=== PATIENT | female | born 1935 | race Caucasian/White ===

== ENCOUNTER 2019-12-11 06:36 | Inpatient (IN) ==
[2019-12-11 11:37] LABS: Basophils % 0.3 %; Eosinophils # 0.1 K/mcL (0.0-0.6); Eosinophils % 1.2 %; Hematocrit 29.2 % (35.3-44.9); Hemoglobin 9.3 g/dL (11.5-15.4); Immature Granulocytes % 0.3 % (0-4); Lymphocytes # 0.9 K/mcL (0.6-4.6); Lymphocytes % 15.8 %; Mean Corpuscular HGB Conc 31.8 g/dL (31.6-35.5); Mean Corpuscular Hemoglobin 32.3 pg (28.0-33.3); Mean Corpuscular Volume 101.4 fL (83.0-100.0); Mean Platelet Volume 9.6 fL (9.4-12.4); Monocytes # 0.5 K/mcL (0.0-1.3); Monocytes % 8.7 %; Neutrophils # 4.3 K/mcL (1.6-8.9); Platelet Count 204 K/mcL (140-400); Red Blood Count 2.88 M/mcL (3.82-4.97); Red Cell Distribution Width 15.2 % (11.5-14.5); Segmented Neutrophils % 73.7 %; White Blood Count 5.9 K/mcL (4.3-11.1)
[2019-12-11 12:00] LABS: Alanine Aminotransferase 44 Units/L (7-52); Albumin 3.8 g/dL (3.5-5.7); Albumin/Globulin Ratio 1.1 (1.1-2.2); Alkaline Phosphatase 63 Units/L (34-104); Aspartate Amino Transferase 47 Units/L (13-39); BUN/Creatinine Ratio 31 (6-26); Bilirubin,Total 0.8 mg/dL (0.3-1.0); Blood Urea Nitrogen 28 mg/dL (8-23); Calcium 8.8 mg/dL (8.6-10.3); Carbon Dioxide 25 mEq/L (23-29); Chloride 108 mEq/L (98-107); Globulin 3.5 g/dL (2.4-3.5); Glucose 96 mg/dL (70-105); Magnesium 1.9 mg/dL (1.6-2.6); Osmolality,Calculated 291 (280-300); Potassium 4.1 mEq/L (3.5-5.1); Sodium 138 mEq/L (136-145); Total Protein 7.3 g/dL (6.4-8.9); Troponin I < 0.03 ng/mL (< 0.04); eGFR For African Americans > 60 (> 60); eGFR For Non-African Americans > 60 (> 60)
[2019-12-11 12:16] LABS: INR 1.2; Prothrombin Time 13.5 Seconds (9.4-12.1)
[2019-12-11] MEDS ORDERED: Perflutren Lipid Microsphere 1.3 ML in 0.9 % Sodium Chloride 8.7 ML IVP PRN (12:29)
[2019-12-11] MEDS: Acyclovir 200 MG CAPSULE PO SCH ×2 (15:50→19:42)
[2019-12-11] MEDS: amLODIPine 5 MG TABLET PO SCH (15:51)
[2019-12-11] MEDS: Aspirin 81 MG TAB.CHEW PO SCH (17:13)
[2019-12-11] MEDS ORDERED: Furosemide 40 MG/4 ML VIAL IVP ONE (18:23)
[2019-12-11] MEDS ORDERED: Furosemide 40 MG/4 ML VIAL IVP SCH (21:00)
[2019-12-11] MEDS: Famotidine 20 MG TABLET PO SCH (21:58)
[2019-12-12 01:48] LABS: Hematocrit 30.1 % (35.3-44.9); Hemoglobin 9.6 g/dL (11.5-15.4); Mean Corpuscular HGB Conc 31.9 g/dL (31.6-35.5); Mean Corpuscular Hemoglobin 32.3 pg (28.0-33.3); Mean Corpuscular Volume 101.3 fL (83.0-100.0); Mean Platelet Volume 9.7 fL (9.4-12.4); Platelet Count 218 K/mcL (140-400); Red Blood Count 2.97 M/mcL (3.82-4.97); Red Cell Distribution Width 15.3 % (11.5-14.5); White Blood Count 6.6 K/mcL (4.3-11.1)
[2019-12-12 02:06] LABS: Calcium 8.6 mg/dL (8.6-10.3); Magnesium 1.7 mg/dL (1.6-2.6); Potassium 4.1 mEq/L (3.5-5.1)
[2019-12-12 02:09] LABS: Troponin I < 0.03 ng/mL (< 0.04)
[2019-12-12] MEDS ORDERED: Furosemide 40 MG/4 ML VIAL IVP SCH (08:00)
[2019-12-12 08:41] LABS: Thyroid Stimulating Hormone 1.212 mcIU/mL (0.340-5.600)
[2019-12-12] MEDS ORDERED: calcitrioL 0.25 MCG CAPSULE PO SCH (09:00)
[2019-12-12] MEDS: Acyclovir 200 MG CAPSULE PO SCH ×3 (09:50→19:42)
[2019-12-12] MEDS: amLODIPine 5 MG TABLET PO SCH (09:50)
[2019-12-12] MEDS: Famotidine 20 MG TABLET PO SCH (09:50)
[2019-12-12] MEDS: *HR* Enoxaparin 30 MG/0.3 ML SYRINGE SQ SCH (13:41)
[2019-12-12] MEDS: Aspirin 81 MG TAB.CHEW PO SCH (18:00)
[2019-12-13] MEDS: *HR* Enoxaparin 30 MG/0.3 ML SYRINGE SQ SCH (05:17)
[2019-12-13] MEDS: Acyclovir 200 MG CAPSULE PO SCH (08:51)
[2019-12-13] MEDS: amLODIPine 5 MG TABLET PO SCH (08:51)
[2019-12-13] MEDS ORDERED: Famotidine 20 MG TABLET PO SCH (09:00)
[2019-12-13 10:12] LABS: Basophils % 0.5 %; Eosinophils # 0.2 K/mcL (0.0-0.6); Eosinophils % 4.1 %; Hemoglobin 9.4 g/dL (11.5-15.4); Immature Granulocytes % 0.2 % (0-4); Lymphocytes % 17.1 %; Mean Corpuscular HGB Conc 32.4 g/dL (31.6-35.5); Mean Corpuscular Hemoglobin 33.1 pg (28.0-33.3); Mean Corpuscular Volume 102.1 fL (83.0-100.0); Mean Platelet Volume 9.5 fL (9.4-12.4); Monocytes # 0.5 K/mcL (0.0-1.3); Monocytes % 8.6 %; Platelet Count 224 K/mcL (140-400); Red Blood Count 2.84 M/mcL (3.82-4.97); Red Cell Distribution Width 15.1 % (11.5-14.5); Segmented Neutrophils % 69.5 %; White Blood Count 5.8 K/mcL (4.3-11.1)
[2019-12-13 10:31] LABS: Calcium 8.9 mg/dL (8.6-10.3); Potassium 3.9 mEq/L (3.5-5.1)
[2019-12-13] MEDS ORDERED: Furosemide 20 MG TABLET PO SCH (11:30)
[2019-12-13 14:42] VITALS: BP 137/60
== END 2019-12-13 16:07 | disposition home or self-care (01) | DRG 291 ==
LOC: CDU → SUATTDRO 08:57 → 2ANU 10:20
PROVIDERS: ADMIT Student in an Organized Health Care Education/Training Program; ATTEND Internal Medicine

== ENCOUNTER 2019-12-17 04:45 | Inpatient (IN) ==
[2019-12-17] MEDS ORDERED: Naloxone 0.4 MG/ML INJ IVP PRN (07:08)
[2019-12-17] MEDS ORDERED: *HR* HYDROcodone/Acet 5/325 mg TABLET PO PRN (07:08)
[2019-12-17] MEDS ORDERED: Ondansetron 4 MG/2 ML VIAL IVP PRN (07:08)
[2019-12-17] MEDS ORDERED: Albuterol 2.5 MG/3 ML NEBULIZER IH PRN (07:13)
[2019-12-17 08:34] LABS: ABG Base Excess -3 mEq/L (-2 to 3); ABG HCO3 23 mEq/L (21-27); ABG Oxygen Saturation 99 % (95-98); ABG PCO2 40 mmHg (35-45); ABG PH 7.35 pH Units (7.32-7.45); ABG PO2 120 mmHg (85-104); ABG TCO2 24 mEq/L (20-26)
[2019-12-17] MEDS: Furosemide 40 MG/4 ML VIAL IVP SCH ×2 (08:51→21:20)
[2019-12-17 09:17] LABS: Basophils % 0.2 %; Hematocrit 29.8 % (35.3-44.9); Hemoglobin 9.3 g/dL (11.5-15.4); Immature Granulocytes % 0.4 % (0-4); Lymphocytes # 0.6 K/mcL (0.6-4.6); Lymphocytes % 11.7 %; Mean Corpuscular HGB Conc 31.2 g/dL (31.6-35.5); Mean Corpuscular Hemoglobin 32.4 pg (28.0-33.3); Mean Corpuscular Volume 103.8 fL (83.0-100.0); Mean Platelet Volume 9.8 fL (9.4-12.4); Monocytes # 0.1 K/mcL (0.0-1.3); Monocytes % 1.4 %; Neutrophils # 4.4 K/mcL (1.6-8.9); Platelet Count 207 K/mcL (140-400); Red Blood Count 2.87 M/mcL (3.82-4.97); Red Cell Distribution Width 15.9 % (11.5-14.5); Segmented Neutrophils % 86.3 %
[2019-12-17 09:19] LABS: INR 1.3; Prothrombin Time 14.8 Seconds (9.4-12.1)
[2019-12-17 09:38] LABS: BUN/Creatinine Ratio 39 (6-26); Blood Urea Nitrogen 37 mg/dL (8-23); Calcium 7.8 mg/dL (8.6-10.3); Carbon Dioxide 21 mEq/L (23-29); Chloride 111 mEq/L (98-107); Glucose 147 mg/dL (70-105); Osmolality,Calculated 299 (280-300); Phosphorous 2.6 mg/dL (2.7-4.5); Potassium 4.8 mEq/L (3.5-5.1); Sodium 139 mEq/L (136-145); Troponin I < 0.03 ng/mL (< 0.04); eGFR For African Americans > 60 (> 60); eGFR For Non-African Americans 57 (> 60)
[2019-12-17] MEDS: *HR* Enoxaparin 60 MG/0.6 ML SYRINGE SQ SCH ×2 (10:29→18:41)
[2019-12-17] MEDS ORDERED: Cholestyramine 4 GM POWD.PACK PO PRN (11:27)
[2019-12-17] MEDS: Aspirin 81 MG TAB.CHEW PO SCH (18:41)
[2019-12-18] MEDS: *HR* Enoxaparin 60 MG/0.6 ML SYRINGE SQ SCH (06:11)
[2019-12-18] MEDS: Cyanocobalamin (B-12) 1,000 MCG TABLET PO SCH (09:12)
[2019-12-18] MEDS: amLODIPine 5 MG TABLET PO SCH (09:12)
[2019-12-18] MEDS: Cholecalciferol (D-3) 1,000 UNIT (25MCG) TABLET PO SCH (09:12)
[2019-12-18 09:24] LABS: Basophils % 0.4 %; Eosinophils # 0.1 K/mcL (0.0-0.6); Eosinophils % 0.7 %; Hematocrit 29.9 % (35.3-44.9); Hemoglobin 9.4 g/dL (11.5-15.4); Immature Granulocytes % 0.2 % (0-4); Lymphocytes # 1.6 K/mcL (0.6-4.6); Lymphocytes % 18.8 %; Mean Corpuscular HGB Conc 31.4 g/dL (31.6-35.5); Mean Corpuscular Hemoglobin 32.3 pg (28.0-33.3); Mean Corpuscular Volume 102.7 fL (83.0-100.0); Mean Platelet Volume 9.4 fL (9.4-12.4); Monocytes # 0.7 K/mcL (0.0-1.3); Monocytes % 7.9 %; Platelet Count 256 K/mcL (140-400); Red Blood Count 2.91 M/mcL (3.82-4.97); Red Cell Distribution Width 16.2 % (11.5-14.5)
[2019-12-18 09:25] LABS: Neutrophils # 6.1 K/mcL (1.6-8.9); White Blood Count 8.4 K/mcL (4.3-11.1)
[2019-12-18 09:45] LABS: Calcium 8.1 mg/dL (8.6-10.3); Potassium 3.8 mEq/L (3.5-5.1)
[2019-12-18] MEDS: Aspirin 81 MG TAB.CHEW PO SCH (16:55)
[2019-12-18] MEDS: Acyclovir 200 MG CAPSULE PO SCH (20:24)
[2019-12-18] MEDS ORDERED: Famotidine 20 MG TABLET PO SCH (21:00)
[2019-12-19 03:24] LABS: Basophils % 0.3 %; Eosinophils # 0.1 K/mcL (0.0-0.6); Eosinophils % 1.6 %; Hemoglobin 9.3 g/dL (11.5-15.4); Immature Granulocytes % 0.3 % (0-4); Lymphocytes # 1.4 K/mcL (0.6-4.6); Lymphocytes % 22.4 %; Mean Corpuscular HGB Conc 32.1 g/dL (31.6-35.5); Mean Corpuscular Hemoglobin 33.7 pg (28.0-33.3); Mean Corpuscular Volume 105.1 fL (83.0-100.0); Mean Platelet Volume 9.9 fL (9.4-12.4); Monocytes # 0.5 K/mcL (0.0-1.3); Monocytes % 8.1 %; Neutrophils # 4.1 K/mcL (1.6-8.9); Platelet Count 247 K/mcL (140-400); Red Blood Count 2.76 M/mcL (3.82-4.97); Red Cell Distribution Width 15.7 % (11.5-14.5); Segmented Neutrophils % 67.3 %; White Blood Count 6.1 K/mcL (4.3-11.1)
[2019-12-19 03:27] LABS: INR 1.2; Prothrombin Time 13.4 Seconds (9.4-12.1)
[2019-12-19 03:37] LABS: Calcium 8.5 mg/dL (8.6-10.3)
[2019-12-19] MEDS ORDERED: *HR* Enoxaparin 60 MG/0.6 ML SYRINGE SQ SCH (06:00)
[2019-12-19] MEDS ORDERED: calcitrioL 0.25 MCG CAPSULE PO SCH (09:00)
[2019-12-19] MEDS: Acyclovir 200 MG CAPSULE PO SCH ×3 (09:54→20:06)
[2019-12-19] MEDS: Famotidine 20 MG TABLET PO SCH (09:54)
[2019-12-19] MEDS: Cholecalciferol (D-3) 1,000 UNIT (25MCG) TABLET PO SCH (09:55)
[2019-12-19] MEDS: Furosemide 20 MG TABLET PO SCH (09:55)
[2019-12-19] MEDS: amLODIPine 5 MG TABLET PO SCH (09:55)
[2019-12-19] MEDS: Cyanocobalamin (B-12) 1,000 MCG TABLET PO SCH (09:55)
[2019-12-19] MEDS ORDERED: Perflutren Lipid Microsphere 1.3 ML in 0.9 % Sodium Chloride 8.7 ML IVP PRN (12:13)
[2019-12-19] MEDS: Apixaban 5 MG TABLET PO SCH (17:19)
[2019-12-19] MEDS: Aspirin 81 MG TAB.CHEW PO SCH (17:20)
[2019-12-20 05:53] LABS: Hematocrit 29.7 % (35.3-44.9); Hemoglobin 9.6 g/dL (11.5-15.4); Mean Corpuscular HGB Conc 32.3 g/dL (31.6-35.5); Mean Corpuscular Hemoglobin 33.6 pg (28.0-33.3); Mean Corpuscular Volume 103.8 fL (83.0-100.0); Mean Platelet Volume 9.4 fL (9.4-12.4); Platelet Count 220 K/mcL (140-400); Red Blood Count 2.86 M/mcL (3.82-4.97); Red Cell Distribution Width 15.4 % (11.5-14.5); Segmented Neutrophils % 64.9 %; White Blood Count 4.8 K/mcL (4.3-11.1)
[2019-12-20 05:54] LABS: Basophils % 0.4 %; Eosinophils # 0.2 K/mcL (0.0-0.6); Eosinophils % 3.7 %; Immature Granulocytes % 0.2 % (0-4); Lymphocytes % 20.9 %; Monocytes # 0.5 K/mcL (0.0-1.3); Monocytes % 9.9 %; Neutrophils # 3.1 K/mcL (1.6-8.9)
[2019-12-20] MEDS: Acyclovir 200 MG CAPSULE PO SCH ×2 (07:14→15:03)
[2019-12-20] MEDS: Cholecalciferol (D-3) 1,000 UNIT (25MCG) TABLET PO SCH (07:14)
[2019-12-20] MEDS: Cyanocobalamin (B-12) 1,000 MCG TABLET PO SCH (07:14)
[2019-12-20] MEDS: amLODIPine 5 MG TABLET PO SCH (07:14)
[2019-12-20] MEDS: Apixaban 5 MG TABLET PO SCH (07:15)
[2019-12-20] MEDS: Furosemide 20 MG TABLET PO SCH (07:15)
[2019-12-20] MEDS: Famotidine 20 MG TABLET PO SCH (07:15)
[2019-12-20] MEDS ORDERED: amLODIPine 5 MG TABLET PO ONE (08:43)
[2019-12-20 11:42] VITALS: BP 126/54
[2019-12-21] MEDS ORDERED: amLODIPine 5 MG TABLET PO SCH (09:00)
== END 2019-12-20 15:05 | disposition home or self-care (01) | DRG 176 ==
LOC: 2ANU → SUATTDRO 06:22
PROVIDERS: ADMIT Internal Medicine; ATTEND Internal Medicine

== ENCOUNTER 2020-01-21 05:39 | Inpatient (IN) ==
[2020-01-21] MEDS ORDERED: Isovue-370 500 ML BOTTLE IVP ONE (07:13)
[2020-01-21] MEDS ORDERED: Pantoprazole 80 MG in 0.9 % Sodium Chloride 50 ML IVPB ONE (07:13)
[2020-01-21 07:29] LABS: Basophils % 0.6 %; Eosinophils # 0.1 K/mcL (0.0-0.6); Eosinophils % 1.6 %; Hematocrit 28.2 % (35.3-44.9); Immature Granulocytes % 0.4 % (0-4); Lymphocytes # 1.1 K/mcL (0.6-4.6); Lymphocytes % 15.8 %; Mean Corpuscular HGB Conc 31.9 g/dL (31.6-35.5); Mean Corpuscular Hemoglobin 32.6 pg (28.0-33.3); Mean Corpuscular Volume 102.2 fL (83.0-100.0); Mean Platelet Volume 9.6 fL (9.4-12.4); Monocytes # 0.6 K/mcL (0.0-1.3); Monocytes % 9.4 %; Neutrophils # 4.9 K/mcL (1.6-8.9); Platelet Count 257 K/mcL (140-400); Red Blood Count 2.76 M/mcL (3.82-4.97); Red Cell Distribution Width 13.6 % (11.5-14.5); Segmented Neutrophils % 72.2 %; White Blood Count 6.8 K/mcL (4.3-11.1)
[2020-01-21 07:35] LABS: INR 1.4; Prothrombin Time 16.5 Seconds (9.4-12.1)
[2020-01-21 07:51] LABS: Calcium 9.1 mg/dL (8.6-10.3); Potassium 4.3 mEq/L (3.5-5.1)
[2020-01-21 08:25] LABS: Bacteria,Urine Few per hpf (None-Few); Bilirubin,Urine Negative (Negative); Blood,Urine Trace (Negative); Clarity,Urine Turbid (Clear); Color,Urine Light-Yellow (Yellow); Glucose,Urine (UA) Normal (Normal); Hyaline Casts,Urine Few per lpf (None Seen); Ketones,Urine Negative (Negative); Leukocyte Esterase,Urine Large (Negative); Mucus,Urine Few per lpf (None-Few); Nitrite,Urine Positive (Negative); Protein,Urine Trace mg/dL (Neg-Trace); Specific Gravity,Urine 1.018 (1.010-1.025); Squamous Epithelial Cell,Urine Few per hpf (None-Few); Urobilinogen,Urine Normal (Normal); WBC,Urine TNTC per hpf (0-3)
[2020-01-21] MEDS ORDERED: cefTRIAXone 1,000 MG in 0.9 % Sodium Chloride Mini Bag 100 ML IVPB ONE (08:59)
[2020-01-21] MEDS ORDERED: Naloxone 0.4 MG/ML INJ IVP PRN (10:36)
[2020-01-21] MEDS ORDERED: Cholestyramine 4 GM POWD.PACK PO PRN (10:40)
[2020-01-21] MEDS ORDERED: Denosumab 60 MG/ML SYRINGE SQ SCH (10:45)
[2020-01-21 11:36] LABS: Hemoglobin 8.5 g/dL (11.5-15.4)
[2020-01-21] MEDS: Pantoprazole 40 MG VIAL IVP SCH (17:32)
[2020-01-21 17:49] LABS: Hematocrit 26.7 % (35.3-44.9); Hemoglobin 8.2 g/dL (11.5-15.4)
[2020-01-22 01:04] LABS: Basophils % 0.4 %; Eosinophils # 0.1 K/mcL (0.0-0.6); Eosinophils % 1.8 %; Hematocrit 25.6 % (35.3-44.9); Hemoglobin 8.1 g/dL (11.5-15.4); Immature Granulocytes % 0.3 % (0-4); Lymphocytes # 1.1 K/mcL (0.6-4.6); Lymphocytes % 16.4 %; Mean Corpuscular HGB Conc 31.6 g/dL (31.6-35.5); Mean Corpuscular Hemoglobin 32.5 pg (28.0-33.3); Mean Corpuscular Volume 102.8 fL (83.0-100.0); Mean Platelet Volume 9.6 fL (9.4-12.4); Monocytes # 0.6 K/mcL (0.0-1.3); Monocytes % 8.4 %; Neutrophils # 4.9 K/mcL (1.6-8.9); Platelet Count 228 K/mcL (140-400); Red Blood Count 2.49 M/mcL (3.82-4.97); Red Cell Distribution Width 13.8 % (11.5-14.5); Segmented Neutrophils % 72.7 %; White Blood Count 6.8 K/mcL (4.3-11.1)
[2020-01-22] MEDS ORDERED: methylPREDNISolone 125 MG/2 ML VIAL ONE (01:15)
[2020-01-22] MEDS ORDERED: methylPREDNISolone 125 MG/2 ML VIAL IVP ONE (01:17)
[2020-01-22] MEDS: Ipratropium/Albuterol Neb 3 ML IH SCH ×7 (01:22→23:32)
[2020-01-22 01:25] LABS: BUN/Creatinine Ratio 39 (6-26); Blood Urea Nitrogen 37 mg/dL (8-23); Calcium 8.2 mg/dL (8.6-10.3); Carbon Dioxide 22 mEq/L (23-29); Chloride 109 mEq/L (98-107); Glucose 85 mg/dL (70-105); Osmolality,Calculated 292 (280-300); Sodium 137 mEq/L (136-145); eGFR For African Americans > 60 (> 60); eGFR For Non-African Americans 55 (> 60)
[2020-01-22] MEDS ORDERED: Furosemide 40 MG/4 ML VIAL IVP ONE (01:49)
[2020-01-22 02:04] LABS: VBG HCO3 21 mEq/L (21-27); VBG PCO2 44 mmHg (41-51); VBG PO2 185 mmHg (25-50)
[2020-01-22 04:05] LABS: Adenovirus Not Detected (Not Detect); Bordetella Pertussis Not Detected (Not Detect); Chlamydophila pneumoniae Not Detected (Not Detect); Coronavirus 229E Not Detected (Not Detect); Coronavirus HKU1 Not Detected (Not Detect); Coronavirus NL63 Not Detected (Not Detect); Coronavirus OC43 Not Detected (Not Detect); Human Metapneumovirus Not Detected (Not Detect); Human Rhinovirus/Enterovirus Not Detected (Not Detect); Influenza A Subtype 2009 H1 Not Detected (Not Detect); Influenza B Not Detected (Not Detect); Mycoplasma pneumoniae Not Detected (Not Detect); Parainfluenza Virus 1 Not Detected (Not Detect); Parainfluenza Virus 2 Not Detected (Not Detect); Parainfluenza Virus 3 Not Detected (Not Detect); Parainfluenza Virus 4 Not Detected (Not Detect); Respiratory Syncytial Virus Not Detected (Not Detect); SARS-CoV-2 Not Detected (Not Detect)
[2020-01-22] MEDS: Doxycycline 100 MG in 0.9 % Sodium Chloride Mini Bag 100 ML IVPB SCH ×2 (05:13→18:06)
[2020-01-22] MEDS: Pantoprazole 40 MG VIAL IVP SCH ×2 (05:13→18:04)
[2020-01-22] MEDS ORDERED: Furosemide 20 MG/2 ML VIAL IVP SCH (09:00)
[2020-01-22] MEDS ORDERED: Furosemide 20 MG TABLET PO SCH (09:00)
[2020-01-22] MEDS: Heparin 25,000UNIT/250ML 1/2NS 25,000 UNIT/250 ML IV.SOLN IVC SCH (10:52)
[2020-01-22 14:24] LABS: Hemoglobin 8.3 g/dL (11.5-15.4)
[2020-01-22] MEDS: Acyclovir 200 MG CAPSULE PO SCH ×2 (15:30→20:12)
[2020-01-23 02:12] LABS: Hematocrit 25.6 % (35.3-44.9); Hemoglobin 8.2 g/dL (11.5-15.4)
[2020-01-23] MEDS: Ipratropium/Albuterol Neb 3 ML IH SCH ×6 (03:47→23:47)
[2020-01-23] MEDS: Doxycycline 100 MG in 0.9 % Sodium Chloride Mini Bag 100 ML IVPB SCH ×2 (06:07→18:05)
[2020-01-23] MEDS: Pantoprazole 40 MG VIAL IVP SCH ×2 (06:07→18:08)
[2020-01-23] MEDS ORDERED: MethylPREDNISolone 40 MG/ML VIAL IVP STA (07:41)
[2020-01-23 07:53] LABS: ABG Base Excess -7 mEq/L (-2 to 3); ABG HCO3 20 mEq/L (21-27); ABG Oxygen Saturation 90 % (95-98); ABG PCO2 43 mmHg (35-45); ABG PH 7.27 pH Units (7.32-7.45); ABG PO2 67 mmHg (85-104); ABG TCO2 21 mEq/L (20-26)
[2020-01-23] MEDS ORDERED: calcitrioL 0.25 MCG CAPSULE PO SCH (10:40)
[2020-01-23] MEDS ORDERED: methylPREDNISolone 125 MG/2 ML VIAL IVP SCH (12:00)
[2020-01-23] MEDS: Acyclovir 200 MG CAPSULE PO SCH ×3 (12:14→20:28)
[2020-01-23] MEDS ORDERED: cefTRIAXone 1,000 MG in Water for inj. (sterile) 10 ML IVP SCH (13:00)
[2020-01-23 14:48] LABS: Basophils % 0.1 %; Hematocrit 24.5 % (35.3-44.9); Hemoglobin 7.8 g/dL (11.5-15.4); Immature Granulocytes % 0.4 % (0-4); Lymphocytes # 0.5 K/mcL (0.6-4.6); Mean Corpuscular HGB Conc 31.8 g/dL (31.6-35.5); Mean Corpuscular Hemoglobin 32.9 pg (28.0-33.3); Mean Corpuscular Volume 103.4 fL (83.0-100.0); Mean Platelet Volume 9.8 fL (9.4-12.4); Monocytes # 0.1 K/mcL (0.0-1.3); Neutrophils # 9.3 K/mcL (1.6-8.9); Platelet Count 246 K/mcL (140-400); Red Blood Count 2.37 M/mcL (3.82-4.97); Segmented Neutrophils % 93.5 %; White Blood Count 9.9 K/mcL (4.3-11.1)
[2020-01-23 15:04] LABS: Calcium 7.9 mg/dL (8.6-10.3); Potassium 4.3 mEq/L (3.5-5.1)
[2020-01-23] MEDS: Heparin 25,000UNIT/250ML 1/2NS 25,000 UNIT/250 ML IV.SOLN IVC SCH (15:43)
[2020-01-23] MEDS: methylPREDNISolone 125 MG/2 ML VIAL IVP SCH ×2 (18:04→23:24)
[2020-01-23 19:05] LABS: Hematocrit 24.6 % (35.3-44.9); Hemoglobin 7.7 g/dL (11.5-15.4)
[2020-01-23 23:41] LABS: Hematocrit 23.5 % (35.3-44.9); Hemoglobin 7.3 g/dL (11.5-15.4)
[2020-01-24 04:18] LABS: Hemoglobin 7.3 g/dL (11.5-15.4); Mean Corpuscular HGB Conc 30.4 g/dL (31.6-35.5); Mean Corpuscular Hemoglobin 31.3 pg (28.0-33.3); Mean Platelet Volume 9.8 fL (9.4-12.4); Platelet Count 247 K/mcL (140-400); Red Blood Count 2.33 M/mcL (3.82-4.97); Red Cell Distribution Width 13.9 % (11.5-14.5); White Blood Count 6.5 K/mcL (4.3-11.1)
[2020-01-24] MEDS: Ipratropium/Albuterol Neb 3 ML IH SCH ×6 (04:18→23:32)
[2020-01-24 04:37] LABS: BUN/Creatinine Ratio 35 (6-26); Blood Urea Nitrogen 36 mg/dL (8-23); Calcium 7.8 mg/dL (8.6-10.3); Carbon Dioxide 21 mEq/L (23-29); Chloride 111 mEq/L (98-107); Glucose 131 mg/dL (70-105); Osmolality,Calculated 296 (280-300); Potassium 4.2 mEq/L (3.5-5.1); Sodium 138 mEq/L (136-145); eGFR For African Americans > 60 (> 60); eGFR For Non-African Americans 51 (> 60)
[2020-01-24] MEDS: Doxycycline 100 MG in 0.9 % Sodium Chloride Mini Bag 100 ML IVPB SCH ×2 (06:06→18:38)
[2020-01-24] MEDS: Pantoprazole 40 MG VIAL IVP SCH ×2 (06:06→18:37)
[2020-01-24] MEDS: methylPREDNISolone 125 MG/2 ML VIAL IVP SCH (09:34)
[2020-01-24] MEDS ORDERED: *HR* FentaNYL (PF) 100 MCG/2 ML VIAL ONE (11:05)
[2020-01-24] MEDS ORDERED: *HR* Etomidate 40 MG/20 ML VIAL IVP ONE (11:25)
[2020-01-24] MEDS ORDERED: Naloxone 0.4 MG/ML INJ IVP PRN (12:44)
[2020-01-24] MEDS ORDERED: Cholestyramine 4 GM POWD.PACK PO PRN (12:44)
[2020-01-24] MEDS ORDERED: Heparin 25,000UNIT/250ML 1/2NS 25,000 UNIT/250 ML IV.SOLN IVC SCH (12:44)
[2020-01-24] MEDS ORDERED: Perflutren Lipid Microsphere 1.3 ML in 0.9 % Sodium Chloride 8.7 ML IVP PRN (13:09)
[2020-01-24] MEDS: Acyclovir 200 MG CAPSULE PO SCH ×3 (14:06→21:36)
[2020-01-24] MEDS: cefTRIAXone 1,000 MG in Water for inj. (sterile) 10 ML IVP SCH (14:06)
[2020-01-24] MEDS: Heparin 25,000UNIT/250ML 1/2NS 25,000 UNIT/250 ML IV.SOLN IVC SCH (14:09)
[2020-01-24] MEDS: Furosemide 20 MG/2 ML VIAL IVP SCH ×2 (14:16→21:36)
[2020-01-24] MEDS ORDERED: MethylPREDNISolone 40 MG/ML VIAL IVP SCH (16:00)
[2020-01-24 17:09] LABS: Hematocrit 24.1 % (35.3-44.9); Hemoglobin 7.5 g/dL (11.5-15.4)
[2020-01-24] MEDS: MethylPREDNISolone 40 MG/ML VIAL IVP SCH (18:37)
[2020-01-25] MEDS: Ipratropium/Albuterol Neb 3 ML IH SCH ×6 (03:51→23:39)
[2020-01-25] MEDS: MethylPREDNISolone 40 MG/ML VIAL IVP SCH ×2 (05:18→17:27)
[2020-01-25] MEDS: Pantoprazole 40 MG VIAL IVP SCH ×2 (05:19→17:27)
[2020-01-25] MEDS: Doxycycline 100 MG in 0.9 % Sodium Chloride Mini Bag 100 ML IVPB SCH (05:19)
[2020-01-25] MEDS: calcitrioL 0.25 MCG CAPSULE PO SCH (10:06)
[2020-01-25] MEDS: Acyclovir 200 MG CAPSULE PO SCH ×3 (10:06→19:49)
[2020-01-25] MEDS: Furosemide 20 MG/2 ML VIAL IVP SCH (10:16)
[2020-01-25 10:23] LABS: Basophils % 0.1 %; Hematocrit 23.8 % (35.3-44.9); Hemoglobin 7.5 g/dL (11.5-15.4); Immature Granulocytes % 0.9 % (0-4); Lymphocytes # 0.8 K/mcL (0.6-4.6); Lymphocytes % 6.2 %; Mean Corpuscular HGB Conc 31.5 g/dL (31.6-35.5); Mean Corpuscular Hemoglobin 33.2 pg (28.0-33.3); Mean Corpuscular Volume 105.3 fL (83.0-100.0); Mean Platelet Volume 9.7 fL (9.4-12.4); Monocytes # 0.6 K/mcL (0.0-1.3); Monocytes % 4.2 %; Neutrophils # 11.9 K/mcL (1.6-8.9); Platelet Count 310 K/mcL (140-400); Red Blood Count 2.26 M/mcL (3.82-4.97); Red Cell Distribution Width 14.4 % (11.5-14.5); Segmented Neutrophils % 88.6 %; White Blood Count 13.4 K/mcL (4.3-11.1)
[2020-01-25 10:41] LABS: Calcium 7.6 mg/dL (8.6-10.3); Potassium 3.5 mEq/L (3.5-5.1)
[2020-01-25] MEDS: cefTRIAXone 1,000 MG in Water for inj. (sterile) 10 ML IVP SCH (12:48)
[2020-01-25] MEDS: Cefdinir 300 MG CAPSULE PO SCH (19:49)
[2020-01-25] MEDS: Doxycycline 100 MG CAPSULE PO SCH (19:49)
[2020-01-26] MEDS: Ipratropium/Albuterol Neb 3 ML IH SCH ×6 (03:27→23:39)
[2020-01-26 03:52] LABS: Basophils % 0.1 %; Hematocrit 23.2 % (35.3-44.9); Hemoglobin 7.2 g/dL (11.5-15.4); Immature Granulocytes % 1.1 % (0-4); Lymphocytes % 8.2 %; Mean Corpuscular Hemoglobin 32.6 pg (28.0-33.3); Mean Platelet Volume 10.1 fL (9.4-12.4); Monocytes # 0.5 K/mcL (0.0-1.3); Neutrophils # 10.4 K/mcL (1.6-8.9); Platelet Count 276 K/mcL (140-400); Red Blood Count 2.21 M/mcL (3.82-4.97); Red Cell Distribution Width 14.3 % (11.5-14.5); Segmented Neutrophils % 86.6 %
[2020-01-26] MEDS: Pantoprazole 40 MG VIAL IVP SCH ×2 (05:48→17:04)
[2020-01-26] MEDS: MethylPREDNISolone 40 MG/ML VIAL IVP SCH ×2 (05:48→17:04)
[2020-01-26] MEDS: Acyclovir 200 MG CAPSULE PO SCH ×3 (08:42→21:22)
[2020-01-26] MEDS: Doxycycline 100 MG CAPSULE PO SCH ×2 (08:43→21:23)
[2020-01-26] MEDS: Apixaban 5 MG TABLET PO SCH ×2 (08:43→21:23)
[2020-01-26] MEDS: Cefdinir 300 MG CAPSULE PO SCH (08:43)
[2020-01-26] MEDS: Furosemide 40 MG TABLET PO SCH (12:53)
[2020-01-26] MEDS: Ciprofloxacin HCL Soln 5 ML BOTTLE RIGHT EYE SCH ×2 (17:02→21:23)
[2020-01-27] MEDS: Ciprofloxacin HCL Soln 5 ML BOTTLE RIGHT EYE SCH ×6 (00:30→20:54)
[2020-01-27] MEDS: Ipratropium/Albuterol Neb 3 ML IH SCH ×5 (03:25→19:51)
[2020-01-27] MEDS: Pantoprazole 40 MG VIAL IVP SCH ×2 (05:24→17:32)
[2020-01-27] MEDS: MethylPREDNISolone 40 MG/ML VIAL IVP SCH ×2 (05:24→17:33)
[2020-01-27 05:50] LABS: Basophils % 0.1 %; Hematocrit 23.7 % (35.3-44.9); Hemoglobin 7.4 g/dL (11.5-15.4); Immature Granulocytes % 1.7 % (0-4); Lymphocytes # 1.3 K/mcL (0.6-4.6); Lymphocytes % 12.8 %; Mean Corpuscular HGB Conc 31.2 g/dL (31.6-35.5); Mean Corpuscular Volume 102.6 fL (83.0-100.0); Mean Platelet Volume 9.9 fL (9.4-12.4); Monocytes # 0.7 K/mcL (0.0-1.3); Monocytes % 6.9 %; Neutrophils # 7.6 K/mcL (1.6-8.9); Nucleated Red Blood Cells 0.2 /100 WBC (0); Platelet Count 277 K/mcL (140-400); Red Blood Count 2.31 M/mcL (3.82-4.97); Red Cell Distribution Width 13.8 % (11.5-14.5); Segmented Neutrophils % 78.5 %; White Blood Count 9.7 K/mcL (4.3-11.1)
[2020-01-27] MEDS ORDERED: Cefdinir 300 MG CAPSULE PO SCH (09:00)
[2020-01-27] MEDS: Doxycycline 100 MG CAPSULE PO SCH ×2 (09:38→20:55)
[2020-01-27] MEDS: Apixaban 5 MG TABLET PO SCH ×2 (09:38→20:54)
[2020-01-27] MEDS: Furosemide 40 MG TABLET PO SCH (09:39)
[2020-01-27] MEDS: Acyclovir 200 MG CAPSULE PO SCH ×3 (09:39→20:55)
[2020-01-27] MEDS: calcitrioL 0.25 MCG CAPSULE PO SCH (15:10)
[2020-01-27 17:49] LABS: Adenovirus Not Detected (Not Detect); Coronavirus 229E Not Detected (Not Detect); Coronavirus HKU1 Not Detected (Not Detect); Coronavirus NL63 Not Detected (Not Detect); Coronavirus OC43 Not Detected (Not Detect)
[2020-01-27 17:50] LABS: Bordetella Pertussis Not Detected (Not Detect); Chlamydophila pneumoniae Not Detected (Not Detect); Human Metapneumovirus Not Detected (Not Detect); Human Rhinovirus/Enterovirus Not Detected (Not Detect); Influenza A Subtype 2009 H1 Not Detected (Not Detect); Influenza B Not Detected (Not Detect); Mycoplasma pneumoniae Not Detected (Not Detect); Parainfluenza Virus 1 Not Detected (Not Detect); Parainfluenza Virus 2 Not Detected (Not Detect); Parainfluenza Virus 3 Not Detected (Not Detect); Parainfluenza Virus 4 Not Detected (Not Detect); Respiratory Syncytial Virus Not Detected (Not Detect); SARS-CoV-2 Not Detected (Not Detect)
[2020-01-27 20:40] VITALS: BP 151/58
== END 2020-01-27 21:45 | disposition home or self-care (01) | DRG 377 ==
LOC: EMEROOARM 05:39 → 3ANU 05:39 → SUATTDRO 01-22 14:34 → 2NNU 01-23 10:04
PROVIDERS: ADMIT Internal Medicine; ATTEND Internal Medicine

== ENCOUNTER 2020-03-27 19:51 | Inpatient (IN) ==
[2020-03-27 20:42] LABS: Basophils % 0.5 %; Eosinophils # 0.2 K/mcL (0.0-0.6); Eosinophils % 2.6 %; Hematocrit 27.2 % (35.3-44.9); Hemoglobin 8.3 g/dL (11.5-15.4); Immature Granulocytes % 0.7 % (0-4); Lymphocytes % 16.3 %; Mean Corpuscular HGB Conc 30.5 g/dL (31.6-35.5); Mean Corpuscular Hemoglobin 30.3 pg (28.0-33.3); Mean Corpuscular Volume 99.3 fL (83.0-100.0); Mean Platelet Volume 9.2 fL (9.4-12.4); Monocytes # 0.6 K/mcL (0.0-1.3); Monocytes % 9.7 %; Neutrophils # 4.3 K/mcL (1.6-8.9); Platelet Count 297 K/mcL (140-400); Red Blood Count 2.74 M/mcL (3.82-4.97); Red Cell Distribution Width 16.4 % (11.5-14.5); Segmented Neutrophils % 70.2 %; White Blood Count 6.1 K/mcL (4.3-11.1)
[2020-03-27 20:48] LABS: INR 1.1; Prothrombin Time 12.6 Seconds (9.4-12.1)
[2020-03-27 20:51] LABS: Activated Partial Thrombo Time 53.3 Seconds (26.0-36.0)
[2020-03-27] MEDS ORDERED: Pantoprazole 40 MG VIAL IVP ONE ×2 (20:58→22:02)
[2020-03-27 21:02] LABS: Albumin 3.6 g/dL (3.5-5.7); Albumin/Globulin Ratio 0.9 (1.1-2.2); Bilirubin,Total 0.4 mg/dL (0.3-1.0); Calcium 8.9 mg/dL (8.6-10.3); Potassium 4.8 mEq/L (3.5-5.1); Total Protein 7.6 g/dL (6.4-8.9)
[2020-03-27] MEDS: Pantoprazole 40 MG in 0.9 % Sodium Chloride Mini Bag 100 ML IVC SCH (22:35)
[2020-03-27] MEDS ORDERED: 0.9 % Sodium Chloride 1,000 ML IVC ONE (22:38)
[2020-03-27] MEDS ORDERED: Albuterol 2.5 MG/3 ML NEBULIZER ONE (23:40)
[2020-03-27] MEDS ORDERED: Furosemide 40 MG/4 ML VIAL ONE (23:41)
[2020-03-27] MEDS ORDERED: Ipratropium/Albuterol Neb 3 ML IH ONE (23:49)
[2020-03-27] MEDS ORDERED: Furosemide 40 MG/4 ML VIAL IVP ONE (23:49)
[2020-03-28] MEDS ORDERED: Naloxone 0.4 MG/ML INJ IVP PRN (00:25)
[2020-03-28] MEDS ORDERED: Ondansetron 4 MG/2 ML VIAL IVP PRN (00:25)
[2020-03-28] MEDS ORDERED: Ipratropium/Albuterol Neb 3 ML IH PRN (00:30)
[2020-03-28 01:27] LABS: Hematocrit 26.3 % (35.3-44.9); Hemoglobin 7.9 g/dL (11.5-15.4); Mean Platelet Volume 9.5 fL (9.4-12.4); Platelet Count 283 K/mcL (140-400); Red Blood Count 2.63 M/mcL (3.82-4.97); Red Cell Distribution Width 16.2 % (11.5-14.5); White Blood Count 6.7 K/mcL (4.3-11.1)
[2020-03-28 01:53] LABS: Albumin 3.2 g/dL (3.5-5.7); Albumin/Globulin Ratio 0.9 (1.1-2.2); Bilirubin,Total 0.4 mg/dL (0.3-1.0); Calcium 8.1 mg/dL (8.6-10.3); Globulin 3.7 g/dL (2.4-3.5); Potassium 4.3 mEq/L (3.5-5.1); Total Protein 6.9 g/dL (6.4-8.9)
[2020-03-28] MEDS ORDERED: 0.9 % Sodium Chloride 1,000 ML IVC SCH (02:30)
[2020-03-28] MEDS: Pantoprazole 40 MG in 0.9 % Sodium Chloride Mini Bag 100 ML IVC SCH ×2 (03:41→07:31)
[2020-03-28] MEDS: Furosemide 20 MG/2 ML VIAL IVP SCH (13:16)
[2020-03-28] MEDS: Pantoprazole 40 MG VIAL IVP SCH (17:46)
[2020-03-29 05:03] LABS: Hematocrit 25.9 % (35.3-44.9); Hemoglobin 7.7 g/dL (11.5-15.4); Mean Corpuscular HGB Conc 29.7 g/dL (31.6-35.5); Mean Corpuscular Hemoglobin 30.2 pg (28.0-33.3); Mean Corpuscular Volume 101.6 fL (83.0-100.0); Mean Platelet Volume 9.6 fL (9.4-12.4); Platelet Count 227 K/mcL (140-400); Red Blood Count 2.55 M/mcL (3.82-4.97); White Blood Count 4.8 K/mcL (4.3-11.1)
[2020-03-29 05:20] LABS: Alanine Aminotransferase 70 Units/L (7-52); Albumin 3.2 g/dL (3.5-5.7); Albumin/Globulin Ratio 0.9 (1.1-2.2); Alkaline Phosphatase 95 Units/L (34-104); Aspartate Amino Transferase 91 Units/L (13-39); BUN/Creatinine Ratio 33 (6-26); Bilirubin,Total 0.6 mg/dL (0.3-1.0); Blood Urea Nitrogen 34 mg/dL (8-23); Calcium 7.9 mg/dL (8.6-10.3); Carbon Dioxide 25 mEq/L (23-29); Chloride 106 mEq/L (98-107); Globulin 3.6 g/dL (2.4-3.5); Glucose 87 mg/dL (70-105); Osmolality,Calculated 289 (280-300); Potassium 4.1 mEq/L (3.5-5.1); Sodium 136 mEq/L (136-145); Total Protein 6.8 g/dL (6.4-8.9); eGFR For African Americans > 60 (> 60); eGFR For Non-African Americans 50 (> 60)
[2020-03-29] MEDS: Pantoprazole 40 MG VIAL IVP SCH ×2 (05:40→17:56)
[2020-03-29] MEDS: Furosemide 20 MG/2 ML VIAL IVP SCH (09:30)
[2020-03-29] MEDS ORDERED: Acetaminophen 325 MG TABLET PO PRN (09:50)
[2020-03-29] MEDS ORDERED: 0.9 % Sodium Chloride 1,000 ML IVC SCH (13:15)
[2020-03-29 15:33] VITALS: BP 142/56
[2020-03-29] MEDS ORDERED: Lidocaine -MPF 2% 5 ML VIAL SQ ONE (18:38)
[2020-03-29] MEDS ORDERED: *HR* Etomidate 20 MG/10 ML AMPUL IVP ONE (18:38)
[2020-03-29] MEDS ORDERED: *HR* Propofol 200 MG/20 ML VIAL IVP ONE (18:38)
== END 2020-03-29 18:39 | disposition home or self-care (01) | DRG 377 ==
LOC: 3ANU 19:51 → EMEROOARM 19:51 → 3ANU 03-28 00:39
PROVIDERS: ADMIT Student in an Organized Health Care Education/Training Program; ATTEND Student in an Organized Health Care Education/Training Program

== ENCOUNTER 2020-11-04 20:06 | Inpatient (IN) ==
[2020-11-04] MEDS ORDERED: 0.9 % Sodium Chloride 1,000 ML IVC ONE (21:27)
[2020-11-04] MEDS ORDERED: Pantoprazole 40 MG VIAL IVP ONE (21:37)
[2020-11-04 23:10] LABS: Basophils % 0.5 %; Eosinophils # 0.1 K/mcL (0.0-0.6); Eosinophils % 1.1 %; Hematocrit 25.3 % (35.3-44.9); Immature Granulocytes % 0.3 % (0-4); Lymphocytes % 16.2 %; Mean Corpuscular HGB Conc 31.6 g/dL (31.6-35.5); Mean Corpuscular Hemoglobin 31.6 pg (28.0-33.3); Mean Platelet Volume 9.9 fL (9.4-12.4); Monocytes # 0.3 K/mcL (0.0-1.3); Monocytes % 5.2 %; Neutrophils # 4.7 K/mcL (1.6-8.9); Platelet Count 214 K/mcL (140-400); Red Blood Count 2.53 M/mcL (3.82-4.97); Red Cell Distribution Width 13.6 % (11.5-14.5); Segmented Neutrophils % 76.7 %; White Blood Count 6.1 K/mcL (4.3-11.1)
[2020-11-04 23:18] LABS: INR 1.1; Prothrombin Time 13.2 Seconds (9.4-12.1)
[2020-11-04 23:20] LABS: Activated Partial Thrombo Time 40.9 Seconds (26.0-36.0)
[2020-11-04 23:32] LABS: Albumin 3.1 g/dL (3.5-5.7); Albumin/Globulin Ratio 0.7 (1.1-2.2); Bilirubin,Total 0.7 mg/dL (0.3-1.0); Calcium 8.6 mg/dL (8.6-10.3); Globulin 4.6 g/dL (2.4-3.5); Potassium 4.3 mEq/L (3.5-5.1); Total Protein 7.7 g/dL (6.4-8.9)
[2020-11-04 23:47] LABS: Troponin I 0.05 ng/mL (< 0.04)
[2020-11-04] MEDS: Pantoprazole 40 MG in 0.9 % Sodium Chloride Mini Bag 100 ML IVC SCH (23:52)
[2020-11-05] MEDS ORDERED: Acetaminophen 325 MG TABLET PO PRN (00:47)
[2020-11-05] MEDS ORDERED: Ondansetron 4 MG/2 ML VIAL IVP PRN (00:47)
[2020-11-05] MEDS ORDERED: Naloxone 0.4 MG/ML INJ IVP PRN (00:47)
[2020-11-05] MEDS ORDERED: *HR* Promethazine 25 MG/ML VIAL IM PRN (00:47)
[2020-11-05] MEDS ORDERED: Melatonin 3 MG TABLET PO PRN (00:47)
[2020-11-05] MEDS ORDERED: Ipratropium/Albuterol Neb 3 ML IH ONE (00:48)
[2020-11-05 03:55] LABS: Basophils % 0.3 %; Eosinophils # 0.1 K/mcL (0.0-0.6); Eosinophils % 0.7 %; Hematocrit 24.7 % (35.3-44.9); Hemoglobin 7.8 g/dL (11.5-15.4); Immature Granulocytes % 0.3 % (0-4); Lymphocytes # 0.8 K/mcL (0.6-4.6); Lymphocytes % 11.8 %; Mean Corpuscular HGB Conc 31.6 g/dL (31.6-35.5); Mean Corpuscular Hemoglobin 31.8 pg (28.0-33.3); Mean Corpuscular Volume 100.8 fL (83.0-100.0); Mean Platelet Volume 9.8 fL (9.4-12.4); Monocytes # 0.3 K/mcL (0.0-1.3); Monocytes % 4.7 %; Neutrophils # 5.6 K/mcL (1.6-8.9); Platelet Count 199 K/mcL (140-400); Red Blood Count 2.45 M/mcL (3.82-4.97); Red Cell Distribution Width 13.7 % (11.5-14.5); Segmented Neutrophils % 82.2 %; White Blood Count 6.9 K/mcL (4.3-11.1)
[2020-11-05 04:06] LABS: INR 1.1; Prothrombin Time 13.1 Seconds (9.4-12.1)
[2020-11-05 04:15] LABS: Calcium 8.5 mg/dL (8.6-10.3)
[2020-11-05] MEDS: Pantoprazole 40 MG in 0.9 % Sodium Chloride Mini Bag 100 ML IVC SCH ×4 (04:35→21:03)
[2020-11-05] MEDS ORDERED: Ipratropium/Albuterol Neb 3 ML IH PRN (10:59)
[2020-11-05 11:33] LABS: Hematocrit 23.2 % (35.3-44.9); Hemoglobin 7.2 g/dL (11.5-15.4)
[2020-11-05] MEDS ORDERED: 0.9 % Sodium Chloride 250 ML IVC SCH (12:45)
[2020-11-05] MEDS ORDERED: Azithromycin 250 MG TABLET PO ONE (12:46)
[2020-11-05] MEDS: Ipratropium/Albuterol Neb 3 ML IH SCH ×3 (14:21→21:26)
[2020-11-06] MEDS: Ipratropium/Albuterol Neb 3 ML IH SCH ×4 (03:59→22:54)
[2020-11-06] MEDS: Pantoprazole 40 MG in 0.9 % Sodium Chloride Mini Bag 100 ML IVC SCH (04:10)
[2020-11-06 04:50] LABS: Basophils % 0.3 %; Eosinophils % 0.6 %; Hematocrit 23.7 % (35.3-44.9); Hemoglobin 7.4 g/dL (11.5-15.4); Immature Granulocytes % 0.5 % (0-4); Lymphocytes # 0.8 K/mcL (0.6-4.6); Lymphocytes % 12.5 %; Mean Corpuscular HGB Conc 31.2 g/dL (31.6-35.5); Mean Corpuscular Hemoglobin 31.1 pg (28.0-33.3); Mean Corpuscular Volume 99.6 fL (83.0-100.0); Mean Platelet Volume 9.3 fL (9.4-12.4); Monocytes # 0.3 K/mcL (0.0-1.3); Monocytes % 4.7 %; Neutrophils # 5.4 K/mcL (1.6-8.9); Platelet Count 203 K/mcL (140-400); Red Blood Count 2.38 M/mcL (3.82-4.97); Red Cell Distribution Width 13.7 % (11.5-14.5); Segmented Neutrophils % 81.4 %; White Blood Count 6.6 K/mcL (4.3-11.1)
[2020-11-06 05:09] LABS: Calcium 8.4 mg/dL (8.6-10.3); Magnesium 1.8 mg/dL (1.6-2.6); Potassium 3.5 mEq/L (3.5-5.1)
[2020-11-06] MEDS: Azithromycin 250 MG TABLET PO SCH (13:38)
[2020-11-06 14:25] LABS: Hemoglobin 8.8 g/dL (11.5-15.4)
[2020-11-06] MEDS ORDERED: SODIUM CHLORIDE/NAHCO3/KCL/PEG 4,000 ML SOLN.RECON PO ONE (17:00)
[2020-11-06] MEDS: Pantoprazole 40 MG VIAL IVP SCH (17:50)
[2020-11-06] MEDS: Acyclovir 200 MG CAPSULE PO SCH (22:01)
[2020-11-06] MEDS: Ketorolac OPTH Soln 5 ML BOTTLE LEFT EYE SCH ×2 (22:02→22:06)
[2020-11-07] MEDS: Erythromycin OPTH Oint RIGHT EYE SCH ×4 (00:15→20:46)
[2020-11-07] MEDS: Ipratropium/Albuterol Neb 3 ML IH SCH ×4 (04:43→22:25)
[2020-11-07] MEDS: Pantoprazole 40 MG VIAL IVP SCH ×2 (05:29→17:24)
[2020-11-07 05:33] LABS: Basophils % 0.4 %; Eosinophils # 0.1 K/mcL (0.0-0.6); Eosinophils % 0.6 %; Hematocrit 28.8 % (35.3-44.9); Hemoglobin 9.4 g/dL (11.5-15.4); Immature Granulocytes % 0.2 % (0-4); Lymphocytes # 0.6 K/mcL (0.6-4.6); Mean Corpuscular HGB Conc 32.6 g/dL (31.6-35.5); Mean Corpuscular Hemoglobin 31.8 pg (28.0-33.3); Mean Corpuscular Volume 97.3 fL (83.0-100.0); Mean Platelet Volume 9.7 fL (9.4-12.4); Monocytes # 0.4 K/mcL (0.0-1.3); Monocytes % 4.9 %; Neutrophils # 7.1 K/mcL (1.6-8.9); Platelet Count 221 K/mcL (140-400); Red Blood Count 2.96 M/mcL (3.82-4.97); Red Cell Distribution Width 14.7 % (11.5-14.5); Segmented Neutrophils % 86.9 %; White Blood Count 8.2 K/mcL (4.3-11.1)
[2020-11-07 05:55] LABS: BUN/Creatinine Ratio 24 (6-26); Blood Urea Nitrogen 25 mg/dL (8-23); Calcium 8.5 mg/dL (8.6-10.3); Carbon Dioxide 25 mEq/L (23-29); Chloride 102 mEq/L (98-107); Glucose 91 mg/dL (70-105); Magnesium 1.8 mg/dL (1.6-2.6); Osmolality,Calculated 282 (280-300); Potassium 3.4 mEq/L (3.5-5.1); Sodium 134 mEq/L (136-145); eGFR For African Americans > 60 (> 60); eGFR For Non-African Americans 51 (> 60)
[2020-11-07] MEDS: calcitrioL 0.25 MCG CAPSULE PO SCH (08:15)
[2020-11-07] MEDS: Acyclovir 200 MG CAPSULE PO SCH ×3 (08:16→20:46)
[2020-11-07] MEDS: Ketorolac OPTH Soln 5 ML BOTTLE LEFT EYE SCH ×2 (08:16→20:47)
[2020-11-07] MEDS ORDERED: Lidocaine -MPF 2% 5 ML VIAL ONE (10:16)
[2020-11-07] MEDS: Azithromycin 250 MG TABLET PO SCH (12:41)
[2020-11-08] MEDS: Ipratropium/Albuterol Neb 3 ML IH SCH ×4 (03:56→21:47)
[2020-11-08] MEDS: Pantoprazole 40 MG VIAL IVP SCH ×2 (05:25→20:22)
[2020-11-08] MEDS ORDERED: Potassium Chloride Elixir 20 MEQ/15 ML UDC PO ONE (08:17)
[2020-11-08] MEDS: Acyclovir 200 MG CAPSULE PO SCH ×3 (08:45→22:10)
[2020-11-08] MEDS: calcitrioL 0.25 MCG CAPSULE PO SCH (08:45)
[2020-11-08] MEDS: Erythromycin OPTH Oint RIGHT EYE SCH ×3 (08:46→22:10)
[2020-11-08] MEDS: Ketorolac OPTH Soln 5 ML BOTTLE LEFT EYE SCH ×2 (08:47→22:10)
[2020-11-08 10:25] LABS: Hematocrit 23.4 % (35.3-44.9); Mean Corpuscular HGB Conc 33.3 g/dL (31.6-35.5); Mean Corpuscular Hemoglobin 32.6 pg (28.0-33.3); Mean Corpuscular Volume 97.9 fL (83.0-100.0); Mean Platelet Volume 9.7 fL (9.4-12.4); Platelet Count 191 K/mcL (140-400); Red Blood Count 2.39 M/mcL (3.82-4.97); Red Cell Distribution Width 14.5 % (11.5-14.5); White Blood Count 6.3 K/mcL (4.3-11.1)
[2020-11-08 10:35] LABS: Hemoglobin 7.8 g/dL (11.5-15.4)
[2020-11-08 10:45] LABS: Calcium 7.8 mg/dL (8.6-10.3); Potassium 3.8 mEq/L (3.5-5.1)
[2020-11-08] MEDS: Azithromycin 250 MG TABLET PO SCH (13:14)
[2020-11-08] MEDS ORDERED: SODIUM CHLORIDE/NAHCO3/KCL/PEG 4,000 ML SOLN.RECON PO ONE (16:46)
[2020-11-08] MEDS: Pantoprazole 40 MG in 0.9 % Sodium Chloride Mini Bag 100 ML IVC SCH (17:54)
[2020-11-08 20:37] LABS: Hematocrit 24.4 % (35.3-44.9); Hemoglobin 8.1 g/dL (11.5-15.4)
[2020-11-09 02:14] LABS: Hemoglobin 7.9 g/dL (11.5-15.4)
[2020-11-09] MEDS: Ipratropium/Albuterol Neb 3 ML IH SCH ×4 (03:58→22:41)
[2020-11-09] MEDS ORDERED: *HR* Dextrose 50 % in Water (Vial) 50 ML VIAL IVP PRN (05:14)
[2020-11-09] MEDS ORDERED: Dextrose Gel 15 GM/37.5 ML TUBE PO PRN ×2 (05:14)
[2020-11-09] MEDS ORDERED: D5% in Water 1,000 ML IVC PRN (05:14)
[2020-11-09] MEDS: Pantoprazole 40 MG VIAL IVP SCH ×2 (05:22→17:27)
[2020-11-09] MEDS ORDERED: Lidocaine -MPF 2% 5 ML VIAL ONE (09:02)
[2020-11-09] MEDS ORDERED: *HR* Etomidate 40 MG/20 ML VIAL IVP ONE (09:03)
[2020-11-09] MEDS: Ketorolac OPTH Soln 5 ML BOTTLE LEFT EYE SCH ×2 (10:45→22:21)
[2020-11-09] MEDS: calcitrioL 0.25 MCG CAPSULE PO SCH (10:46)
[2020-11-09] MEDS: Erythromycin OPTH Oint RIGHT EYE SCH ×3 (10:46→22:21)
[2020-11-09] MEDS: Acyclovir 200 MG CAPSULE PO SCH ×3 (10:46→22:33)
[2020-11-09] MEDS: Azithromycin 250 MG TABLET PO SCH (16:09)
[2020-11-09] MEDS: diazePAM 2 MG TABLET PO PRN (17:27)
[2020-11-09 22:58] LABS: Hematocrit 23.6 % (35.3-44.9); Hemoglobin 7.4 g/dL (11.5-15.4)
[2020-11-10 03:13] LABS: Hemoglobin 7.4 g/dL (11.5-15.4); Mean Corpuscular HGB Conc 32.2 g/dL (31.6-35.5); Mean Corpuscular Hemoglobin 31.8 pg (28.0-33.3); Mean Corpuscular Volume 98.7 fL (83.0-100.0); Mean Platelet Volume 9.2 fL (9.4-12.4); Platelet Count 206 K/mcL (140-400); Red Blood Count 2.33 M/mcL (3.82-4.97); Red Cell Distribution Width 14.7 % (11.5-14.5); White Blood Count 5.4 K/mcL (4.3-11.1)
[2020-11-10 03:32] LABS: Calcium 7.6 mg/dL (8.6-10.3); Potassium 3.7 mEq/L (3.5-5.1)
[2020-11-10] MEDS: Ipratropium/Albuterol Neb 3 ML IH SCH ×2 (03:41→07:48)
[2020-11-10] MEDS: Pantoprazole 40 MG VIAL IVP SCH (06:15)
[2020-11-10] MEDS: calcitrioL 0.25 MCG CAPSULE PO SCH (08:47)
[2020-11-10] MEDS: Acyclovir 200 MG CAPSULE PO SCH (08:48)
[2020-11-10] MEDS: diazePAM 2 MG TABLET PO PRN (08:58)
[2020-11-10 12:17] VITALS: BP 113/65; PULSE 89; TEMP 98.4; O2SAT 93
== END 2020-11-10 13:42 | disposition home or self-care (01) | DRG 377 ==
LOC: EMEROOARM 20:06 → 3ANU 20:06 → SUATTDRO 11-05 00:50 → 3ANU 11-05 02:29 → SUATTDRO 11-05 18:53
PROVIDERS: ADMIT Internal Medicine; ATTEND Hospitalist
PROC: ENDOCCB (2020-11-07 13:00)